=== PATIENT | female | born 1945 | race Caucasian/White ===

== ENCOUNTER → 2016-06-06 | Outpatient (CLI) | payer MEDICARE, OTHER | LOC: RAD 08:39 | DX: R13.10 Dysphagia, unspecified (principal); K44.9 Diaphragmatic hernia without obstruction or gangrene | CPT/HCPCS: 74246 ==

== ENCOUNTER → 2020-05-04 | Outpatient (CLI) | payer MEDICARE, OTHER ==
[~2020-05-04] MED LIST: AUGMENTIN 500-500 MG PO; AZITHROMYCIN500 MG PO; CELEXA20 MG PO; CLARITIN10 MG PO; CRESTOR20 MG PO; DEXAMETHASONE 44 MG PO; DEXAMETHASONE6 MG PO; DICLOFENAC POTA50 MG PO; FISH OIL PO; HYDROCODON-ACE1 EAC2 PO; LOPRESSOR 25 MG25 MG PO; NORVASC5 MG PO; PANTOPRAZOLE SO40 MG PO; REVLIMID25 MG PO; TRIAMTERENE-HC1 EAC1 PO; ZITHROMAX250 MG PO
== END ==
LOC: MRI 15:00
DX: C90.00 Multiple myeloma not having achieved remission (principal); S22.079D Unspecified fracture of T9-T10 vertebra, subsequent encounter for fracture with routine healing; M40.204 Unspecified kyphosis, thoracic region; S22.059D Unspecified fracture of T5-T6 vertebra, subsequent encounter for fracture with routine healing; S22.049D Unspecified fracture of fourth thoracic vertebra, subsequent encounter for fracture with routine healing; S22.069D Unspecified fracture of T7-T8 vertebra, subsequent encounter for fracture with routine healing; X58.XXXD Exposure to other specified factors, subsequent encounter; Z98.1 Arthrodesis status
CPT/HCPCS: 72157; A9577

== ENCOUNTER 2020-08-14 10:09 | Inpatient (IN) | payer MEDICARE, OTHER ==
[~2020-08-14] VITALS: Ht 160 cm; Wt 68.0 kg
[~2020-08-14 10:09] MED LIST changes: -AUGMENTIN 500-500 MG PO; -CLARITIN10 MG PO; -CRESTOR20 MG PO; -DEXAMETHASONE 44 MG PO; -HYDROCODON-ACE1 EAC2 PO; -LOPRESSOR 25 MG25 MG PO; -NORVASC5 MG PO; -REVLIMID25 MG PO; -ZITHROMAX250 MG PO
[2020-08-14 11:11] LABS: HEMOGLOBIN 10.8 gm/dl (12.3-15.3); RED BLOOD COUNT 3.7 M/UL (4.00-5.10); WHITE BLOOD COUNT 6.2 K/UL (4.5-11.0)
[2020-08-14 11:32] LABS: BUN/CREATININE RATIO 20 (0-10)
[2020-08-14] MEDS ORDERED: ZITHROMAX250 MG PO (14:48)
[2020-08-14] MEDS ORDERED: CRESTOR20 MG PO (20:01)
[2020-08-14] MEDS ORDERED: CLARITIN10 MG PO (20:01)
[2020-08-14] MEDS ORDERED: NORVASC5 MG PO (20:01)
[2020-08-14] MEDS ORDERED: LOPRESSOR 25 MG25 MG PO (20:01)
[2020-08-14] MEDS ORDERED: DEXAMETHASONE 44 MG PO (20:02)
[2020-08-14] MEDS ORDERED: HYDROCODON-ACE1 EAC2 PO (20:03)
[2020-08-14] MEDS ORDERED: REVLIMID25 MG PO (20:04)
[2020-08-15 05:29] LABS: RED BLOOD COUNT 3.1 M/UL (4.00-5.10); WHITE BLOOD COUNT 2.9 K/UL (4.5-11.0)
[2020-08-15 05:40] LABS: BUN/CREATININE RATIO 17 (0-10)
[2020-08-16 04:00] LABS: HEMOGLOBIN 9.3 gm/dl (12.3-15.3); RED BLOOD COUNT 3.2 M/UL (4.00-5.10); WHITE BLOOD COUNT 3.3 K/UL (4.5-11.0)
[2020-08-16 04:36] LABS: BUN/CREATININE RATIO 17 (0-10)
--- NOTE | 2020-08-16 14:56 | NUR ---
PTS ROOM AIR SAT 84%
[2020-08-17 06:56] LABS: HEMOGLOBIN 8.8 gm/dl (12.3-15.3); RED BLOOD COUNT 3.03 M/UL (4.00-5.10); WHITE BLOOD COUNT 3.2 K/UL (4.5-11.0)
[2020-08-17 07:19] LABS: BUN/CREATININE RATIO 14 (0-10)
[2020-08-18 04:16] LABS: HEMOGLOBIN 8.9 gm/dl (12.3-15.3); RED BLOOD COUNT 3.06 M/UL (4.00-5.10); WHITE BLOOD COUNT 3.6 K/UL (4.5-11.0)
[2020-08-18 04:36] LABS: BUN/CREATININE RATIO 10 (0-10)
[2020-08-19 07:17] LABS: BUN/CREATININE RATIO 11 (0-10)
[2020-08-19] MEDS ORDERED: AUGMENTIN 500-500 MG PO (09:06)
== END 2020-08-19 11:53 | disposition home health service (06) | DRG 177 ==
LOC: ER1 10:09 → CDU 15:05 → MED SURG 4 15:05
PROVIDERS: Internal Medicine; Physician Assistant; ADMIT Internal Medicine
DX: J15.8 Pneumonia due to other specified bacteria (principal); J96.01 Acute respiratory failure with hypoxia; C90.00 Multiple myeloma not having achieved remission; E87.1 Hypo-osmolality and hyponatremia; M48.54XA Collapsed vertebra, not elsewhere classified, thoracic region, initial encounter for fracture; I10 Essential (primary) hypertension; F32.9 Major depressive disorder, single episode, unspecified; D63.8 Anemia in other chronic diseases classified elsewhere; E87.6 Hypokalemia; Z20.822 Contact with and (suspected) exposure to COVID-19; E80.6 Other disorders of bilirubin metabolism; E78.5 Hyperlipidemia, unspecified; Z90.710 Acquired absence of both cervix and uterus; Z86.16 Personal history of COVID-19
CPT/HCPCS: 0240U; 36415; 36600; 71045; 80048; 80053; 80202; 82550; 82553; 82803; 83605; 83874; 83880; 84484; 85025; 87040; 87081; 93005; 94640; 94760; 96365; 97161; 99285; J0696; J2543; J3370; J7050; J7070; Q9967

== ENCOUNTER → 2020-11-25 | Outpatient (CLI) | payer MEDICARE, OTHER ==
[~2020-11-25] MED LIST changes: +AUGMENTIN 500-500 MG PO; +CLARITIN10 MG PO; +CRESTOR20 MG PO; +DEXAMETHASONE 44 MG PO; +HYDROCODON-ACE1 EAC2 PO; +LOPRESSOR 25 MG25 MG PO; +NORVASC5 MG PO; +REVLIMID25 MG PO; +ZITHROMAX250 MG PO
== END ==
LOC: EMI 09:00
DX: C90.00 Multiple myeloma not having achieved remission (principal); C79.51 Secondary malignant neoplasm of bone; D50.9 Iron deficiency anemia, unspecified; K90.9 Intestinal malabsorption, unspecified; M51.36 Other intervertebral disc degeneration, lumbar region; M47.816 Spondylosis without myelopathy or radiculopathy, lumbar region; M48.061 Spinal stenosis, lumbar region without neurogenic claudication; M51.26 Other intervertebral disc displacement, lumbar region
CPT/HCPCS: 72158; A9577

== ENCOUNTER → 2021-01-25 | Outpatient (CLI) | payer MEDICARE, OTHER | LOC: KOH-I 12:48 | DX: R05.9 Cough, unspecified (principal); R06.02 Shortness of breath | CPT/HCPCS: 71046 ==

== ENCOUNTER 2021-04-29 10:26 | Inpatient (IN) | payer MEDICARE, OTHER ==
[~2021-04-29] VITALS: Ht 152.4 cm; Wt 70.4 kg
[~2021-04-29 10:26] MED LIST changes: -PANTOPRAZOLE SO40 MG PO; +PROTONIX 40 MG40 M1 PO
[2021-04-29 11:18] LABS: HEMOGLOBIN 11.2 gm/dl (12.3-15.3); RED BLOOD COUNT 3.61 M/UL (4.00-5.10); WHITE BLOOD COUNT 5.7 K/UL (4.5-11.0)
[2021-04-29 11:43] LABS: BUN/CREATININE RATIO 18 (0-10)
[2021-04-29] MEDS ORDERED: REVLIMID10 MG PO (14:46)
[2021-04-29] MEDS ORDERED: ASPIRIN EC81 MG PO (14:47)
[2021-04-30 02:39] LABS: RED BLOOD COUNT 3.25 M/UL (4.00-5.10)
[2021-04-30 02:41] LABS: WHITE BLOOD COUNT 4.2 K/UL (4.5-11.0)
[2021-04-30 04:35] LABS: BUN/CREATININE RATIO 14 (0-10)
[2021-05-01 03:37] LABS: HEMOGLOBIN 10.4 gm/dl (12.3-15.3); RED BLOOD COUNT 3.41 M/UL (4.00-5.10); WHITE BLOOD COUNT 4.2 K/UL (4.5-11.0)
[2021-05-01 04:04] LABS: BUN/CREATININE RATIO 27 (0-10)
[2021-05-02 03:43] LABS: BUN/CREATININE RATIO 35 (0-10)
[2021-05-03] MEDS ORDERED: ASPIRIN EC325 MG PO (13:35)
[2021-05-03] MEDS ORDERED: ALBUTEROL2.5 MG/3 M NEB (13:35)
[2021-05-03] MEDS ORDERED: IPRAT-ALBUT 0.5-3 ML NEB (13:35)
[2021-05-03] MEDS ORDERED: DOCUSATE SODIU100 MG PO (13:35)
[2021-05-03] MEDS ORDERED: ACYCLOVIR200 MG PO (13:35)
[2021-05-03] MEDS ORDERED: LASIX 40 MG TAB40 MG PO (13:36)
[2021-05-03] MEDS ORDERED: POLYETHYLENE GL17 GM PO (13:36)
[2021-05-03] MEDS ORDERED: POTASSIUM CHLO10 MEQ PO (13:36)
[2021-05-03] MEDS ORDERED: AZITHROMYCIN500 MG PO (13:36)
== END 2021-05-03 15:46 | disposition home or self-care (01) | DRG 291 ==
LOC: ER1 10:26 → CDU 14:06 → PROG CARE 14:06
PROVIDERS: Emergency Medicine; Physician Assistant Medical; ADMIT Internal Medicine
PROC: B24BZZZ Ultrasonography of Heart with Aorta (ICD-10-PCS; principal; 2021-05-03)
DX: I11.0 Hypertensive heart disease with heart failure (principal); J96.01 Acute respiratory failure with hypoxia; Z20.822 Contact with and (suspected) exposure to COVID-19; I50.23 Acute on chronic systolic (congestive) heart failure; C90.01 Multiple myeloma in remission; J90 Pleural effusion, not elsewhere classified; I31.3 Pericardial effusion (noninflammatory); J44.1 Chronic obstructive pulmonary disease with (acute) exacerbation; J98.11 Atelectasis; E87.2 Acidosis; E66.01 Morbid (severe) obesity due to excess calories; E87.6 Hypokalemia; E78.5 Hyperlipidemia, unspecified; Z98.890 Other specified postprocedural states; Z90.710 Acquired absence of both cervix and uterus; Z92.21 Personal history of antineoplastic chemotherapy; I25.2 Old myocardial infarction; Z80.9 Family history of malignant neoplasm, unspecified; Z81.8 Family history of other mental and behavioral disorders; Z80.1 Family history of malignant neoplasm of trachea, bronchus and lung; Z79.82 Long term (current) use of aspirin; Z79.899 Other long term (current) drug therapy; Z68.30 Body mass index [BMI] 30.0-30.9, adult
CPT/HCPCS: ECHO; 0240U; 36415; 36600; 71045; 80048; 80053; 81001; 82550; 82553; 82803; 83605; 83735; 83874; 83880; 84132; 84484; 85025; 85027; 85379; 87040; 93005; 93306; 93308; 94640; 94664; 94760; 96374; 97110; 97116-GP-CQ; 97162; 97530-GP-CQ; 99285; J0456; J0696; J1650; J1940; J2920; J7030

== ENCOUNTER 2021-05-17 19:59 | Emergency (ER) | payer MEDICARE, OTHER ==
[~2021-05-17 19:59] MED LIST changes: +ACYCLOVIR200 MG PO; +ALBUTEROL2.5 MG/3 M NEB; +ASPIRIN EC325 MG PO; +ASPIRIN EC81 MG PO; +DOCUSATE SODIU100 MG PO; +IPRAT-ALBUT 0.5-3 ML NEB; +LASIX 40 MG TAB40 MG PO; -LOPRESSOR 25 MG25 MG PO; +POLYETHYLENE GL17 GM PO; +POTASSIUM CHLO10 MEQ PO; +REVLIMID10 MG PO
[2021-05-17 21:14] LABS: HEMOGLOBIN 10.7 gm/dl (12.3-15.3); RED BLOOD COUNT 3.53 M/UL (4.00-5.10); WHITE BLOOD COUNT 5.9 K/UL (4.5-11.0)
[2021-05-18] MEDS ORDERED: AMLODIPINE BESYL5 MG PO (18:26)
[2021-05-18] MEDS ORDERED: FUROSEMIDE40 MG PO (18:27)
[2021-05-18] MEDS ORDERED: POTASSIUM CHLO10 ME1 PO (18:28)
[2021-05-18] MEDS ORDERED: REVLIMID10 MG PO (18:29)
[2021-05-18] MEDS ORDERED: LOPRESSOR 25 MG25 MG PO (20:01)
== END 2021-05-17 23:14 | disposition home or self-care (01) ==
LOC: ER1 19:59
PROVIDERS: Physician Assistant
DX: I11.0 Hypertensive heart disease with heart failure (principal); I50.9 Heart failure, unspecified; R06.02 Shortness of breath; E78.5 Hyperlipidemia, unspecified; J44.9 Chronic obstructive pulmonary disease, unspecified; Z90.710 Acquired absence of both cervix and uterus; K21.9 Gastro-esophageal reflux disease without esophagitis; Z20.822 Contact with and (suspected) exposure to COVID-19
CPT/HCPCS: 71045; 80053; 82550; 82553; 83605; 83874; 83880; 84484; 85025; 87040; 93005; 94664; 94760; 96374; 99285; U0002

== ENCOUNTER 2021-05-18 13:21 | Inpatient (IN) | payer MEDICARE, OTHER ==
[~2021-05-18] VITALS: Ht 162.6 cm; Wt 77.1 kg
[~2021-05-18 13:21] MED LIST changes: -AMLODIPINE BESYL5 MG PO; -FUROSEMIDE40 MG PO; -LOPRESSOR 25 MG25 MG PO; -POTASSIUM CHLO10 ME1 PO
[2021-05-18 14:47] LABS: RED BLOOD COUNT 3.63 M/UL (4.00-5.10); WHITE BLOOD COUNT 6.4 K/UL (4.5-11.0)
[2021-05-18] MEDS ORDERED: AMLODIPINE BESYL5 MG PO (18:26)
[2021-05-18] MEDS ORDERED: FUROSEMIDE40 MG PO (18:27)
[2021-05-18] MEDS ORDERED: POTASSIUM CHLO10 ME1 PO (18:28)
[2021-05-18] MEDS ORDERED: REVLIMID10 MG PO (18:29)
[2021-05-18] MEDS ORDERED: LOPRESSOR 25 MG25 MG PO (20:01)
[2021-05-19 07:09] LABS: HEMOGLOBIN 10.7 gm/dl (12.3-15.3); RED BLOOD COUNT 3.42 M/UL (4.00-5.10)
[2021-05-19 07:10] LABS: WHITE BLOOD COUNT 4.5 K/UL (4.5-11.0)
[2021-05-20 04:59] LABS: HEMOGLOBIN 10.8 gm/dl (12.3-15.3); RED BLOOD COUNT 3.49 M/UL (4.00-5.10); WHITE BLOOD COUNT 4.4 K/UL (4.5-11.0)
[2021-05-21 03:27] LABS: HEMOGLOBIN 10.3 gm/dl (12.3-15.3); RED BLOOD COUNT 3.42 M/UL (4.00-5.10); WHITE BLOOD COUNT 3.9 K/UL (4.5-11.0)
[2021-05-21 10:08] LABS: CREATININE, URINE 158.2 mg/dL (Not Estab.)
[2021-05-22 03:23] LABS: HEMOGLOBIN 9.4 gm/dl (12.3-15.3); WHITE BLOOD COUNT 4.6 K/UL (4.5-11.0)
[2021-05-22 03:35] LABS: RED BLOOD COUNT 3.05 M/UL (4.00-5.10)
[2021-05-22 14:10] LABS: ANTI-DSDNA ANTIBODIES 1 IU/mL (0-9)
[2021-05-22 17:11] LABS: ANTIMYELOPEROXIDASE (MPO) ABS <9.0 U/mL (0.0-9.0); ANTIPROTEINASE 3 (PR-3) ABS <3.5 U/mL (0.0-3.5); ATYPICAL PANCA <1:20 titer (Neg:<1:20); CYTOPLASMIC (C-ANCA) <1:20 titer (Neg:<1:20); PERINUCLEAR (P-ANCA) <1:20 titer (Neg:<1:20)
[2021-05-23 03:22] LABS: HEMOGLOBIN 9.6 gm/dl (12.3-15.3); RED BLOOD COUNT 3.1 M/UL (4.00-5.10); WHITE BLOOD COUNT 5.3 K/UL (4.5-11.0)
[2021-05-23 11:15] LABS: CREATININE, URINE 72.6 mg/dL (Not Estab.)
[2021-05-23] MEDS ORDERED: SOLU-MEDRO40 MG/1 ML IVP (12:32)
[2021-05-23] MEDS ORDERED: COLCHICINE 0.60.6 MG PO (12:32)
[2021-05-23 13:16] LABS: ANTIHISTONE ANTIBODIES 0.7 Units (0.0-0.9)
== END 2021-05-23 18:32 | disposition short-term general hospital (02) | DRG 314 ==
LOC: ER1 13:21 → CDU 16:09 → M/S 16:09
PROVIDERS: Emergency Medicine; Internal Medicine Nephrology; Physician Assistant; ADMIT Internal Medicine
PROC: B24BZZZ Ultrasonography of Heart with Aorta (ICD-10-PCS; principal; 2021-05-19)
DX: I31.3 Pericardial effusion (noninflammatory) (principal); I50.33 Acute on chronic diastolic (congestive) heart failure; J96.01 Acute respiratory failure with hypoxia; Z20.822 Contact with and (suspected) exposure to COVID-19; J18.9 Pneumonia, unspecified organism; N17.9 Acute kidney failure, unspecified; N13.30 Unspecified hydronephrosis; J44.0 Chronic obstructive pulmonary disease with (acute) lower respiratory infection; J44.1 Chronic obstructive pulmonary disease with (acute) exacerbation; I13.0 Hypertensive heart and chronic kidney disease with heart failure and stage 1 through stage 4 chronic kidney disease, or unspecified chronic kidney disease; C90.01 Multiple myeloma in remission; I27.20 Pulmonary hypertension, unspecified; E66.9 Obesity, unspecified; E78.00 Pure hypercholesterolemia, unspecified; I31.4 Cardiac tamponade; D64.9 Anemia, unspecified; D69.6 Thrombocytopenia, unspecified; I31.9 Disease of pericardium, unspecified; R91.8 Other nonspecific abnormal finding of lung field; N18.9 Chronic kidney disease, unspecified; Z90.710 Acquired absence of both cervix and uterus; Z87.81 Personal history of (healed) traumatic fracture; Z80.1 Family history of malignant neoplasm of trachea, bronchus and lung; Z80.9 Family history of malignant neoplasm, unspecified; I25.2 Old myocardial infarction; Z90.49 Acquired absence of other specified parts of digestive tract; Z82.0 Family history of epilepsy and other diseases of the nervous system; Z68.29 Body mass index [BMI] 29.0-29.9, adult
CPT/HCPCS: 36415; 71045; 71250; 74150; 80048; 80053; 81001; 82043; 82550; 82553; 82570; 82728; 83520; 83540; 83550; 83605; 83735; 83874; 83880; 84156; 84439; 84443; 84484; 85025; 85610; 85652; 85730; 86038; 86140; 86225; 86256; 87040; 93005; 93306; 93308; 93971; 94640; 94664; 94760; 96374; 99285; J1940; J2920; J2930; P9047; U0002

== ENCOUNTER → 2021-05-18 | Outpatient (CLI) | payer MEDICARE, OTHER ==
[~2021-05-18] MED LIST changes: +AMLODIPINE BESYL5 MG PO; +FUROSEMIDE40 MG PO; +LOPRESSOR 25 MG25 MG PO; +POTASSIUM CHLO10 ME1 PO
== END ==
LOC: HEART 5 12:42
DX: I31.3 Pericardial effusion (noninflammatory) (principal); I07.1 Rheumatic tricuspid insufficiency
CPT/HCPCS: 93306